=== PATIENT | female | born 1940 | race Caucasian/White ===

== ENCOUNTER 2017-07-30 08:12 | Day surgery (SDC) | payer OTHER, MEDICAID ==
[2017-07-30] MEDS ORDERED: TETRACAINE 0.5% OPHTH 1 DOSE AFFEYE ONE ×2 (08:53→11:40)
[2017-07-30] MEDS ORDERED: NS 500 ML IV 500 ML IV ONE (08:55)
[2017-07-30] MEDS ORDERED: VIGAMOX 0.5% OPHTH 1 DOSE AFFEYE ONE ×6 (08:55→12:03)
[2017-07-30] MEDS ORDERED: PROLENSA OPHTH 1 DOSE AFFEYE ONE (09:12)
[2017-07-30] MEDS ORDERED: ALPHAGAN-P OPHTH 1 DOSE AFFEYE ONE (09:14)
[2017-07-30] MEDS ORDERED: AK-DILATE 2.5% OPHTH 1 DOSE OP ONE ×3 (09:15→09:25)
[2017-07-30] MEDS ORDERED: CYCLOGYL 1% OPHTH 1 DOSE OP ONE ×3 (09:15→09:25)
[2017-07-30] MEDS ORDERED: MYDRIACIL OPHTH 1 DOSE AFFEYE ONE ×3 (09:15→09:25)
[2017-07-30] MEDS ORDERED: BETADINE OPHTH SOLN 5% EACHEYE ONE (11:41)
[2017-07-30] MEDS ORDERED: BSS OPHTH (PLAIN) 500 ML with VANCOMYCIN HCL 500 MG VIAL 25 MG, ADRENALINE CHL INJ 1 MG IR ONE ×3 (11:49)
[2017-07-30] MEDS ORDERED: DUOVISC IO ONE (11:49)
[2017-07-30] MEDS ORDERED: ADRENALINE CHL INJ IJ ONE (11:49)
[2017-07-30] MEDS ORDERED: XYLOCAINE-MPF 1% IJ ONE (11:49)
[2017-07-30] MEDS ORDERED: VERSED ONE (15:32)
[2017-07-30 17:44] VITALS: BP 140/80
== END 2017-07-30 12:25 | disposition home or self-care (01) ==
LOC: SURG1 08:12 → EDBD 08:12 → SURG1 12:25
PROVIDERS: ATTEND Ophthalmology
PROC: 08RJ3JZ Replacement of Right Lens with Synthetic Substitute, Percutaneous Approach (ICD-10-PCS; principal; 2017-07-30 13:45)
PROC: 08DJ3ZZ Extraction of Right Lens, Percutaneous Approach (ICD-10-PCS; principal; 2017-07-30 13:45)
DX: H25.11 Age-related nuclear cataract, right eye (principal); H25.011 Cortical age-related cataract, right eye
CPT/HCPCS: 99100; A4217; J0170; J2250; J3370